=== PATIENT | female | born 2000 | race African-American/Black ===

== ENCOUNTER 2020-03-01 16:13 | Emergency (ER) | payer MEDICAID ==
[~2020-03-01] VITALS: Ht 167.6 cm; Wt 48.0 kg
[2020-03-01 16:19] VITALS: BP 106/46
== END 2020-03-01 18:27 | disposition left against medical advice (07) ==
LOC: ER 16:13
DX: Z53.21 Procedure and treatment not carried out due to patient leaving prior to being seen by health care provider (principal)

== ENCOUNTER 2021-01-25 01:32 | Emergency (ER) | payer SELFPAY ==
[~2021-01-25] VITALS: Ht 160 cm; Wt 55.0 kg
[2021-01-25 01:52] VITALS: BP 122/53
[2021-01-25] MEDS ORDERED: ACETAMINOPHEN 325MG TABLET PO STA (02:25)
[2021-01-25 03:37] LABS: CLARITY URINE CLOUDY (CLEAR); COLOR URINE YELLOW (YELLOW); KETONES URINE NEGATIVE (NEGATIVE); LEUKOCYTE ESTERASE URINE TRACE (NEGATIVE); NITRITE URINE NEGATIVE (NEGATIVE); OCCULT BLOOD URINE NEGATIVE (NEGATIVE); PH URINE 6.5 (4.5-8.0); PROTEIN URINE NEGATIVE (NEGATIVE); SPECIFIC GRAVITY URINE 1.019 (1.005-1.030); UROBILINOGEN URINE 0.2 E.U./dL (0.2-1.0)
[2021-01-25] MEDS ORDERED: LIDOCAINE HCL 1% 20ML VIAL (Pyxis) INJ INFIL SCH (04:30)
[2021-01-25] MEDS ORDERED: CEFTRIAXONE SODIUM 500 MG/VIAL IM SCH (04:30)
[2021-01-25] MEDS ORDERED: DOXY-326 MT (04:36)
[2021-01-25] MEDS ORDERED: METR-167 PO (04:36)
[2021-01-25] MEDS ORDERED: NAPR-681 PO (04:36)
[2021-01-25] MEDS ORDERED: ONDA4TAB5 MT (04:36)
[2021-01-27 10:07] LABS: NEISSERIA GONORRHOEAE NAA Negative (Negative)
== END 2021-01-25 05:56 | disposition home or self-care (01) ==
LOC: ER 01:32
DX: N72 Inflammatory disease of cervix uteri (principal); N76.0 Acute vaginitis; Z79.899 Other long term (current) drug therapy
CPT/HCPCS: 81003; 81025; 87210; 87491; 87591; 96372; 99283; J0696; J3490

== ENCOUNTER 2021-03-13 04:21 | Emergency (ER) | payer SELFPAY ==
[~2021-03-13] VITALS: Ht 160 cm; Wt 53.0 kg
[~2021-03-13 04:21] MED LIST: DOXY-326 MT; METR-167 PO; NAPR-681 PO; ONDA4TAB5 MT
[2021-03-13 05:15] VITALS: BP 130/76
== END 2021-03-13 05:15 | disposition home or self-care (01) ==
LOC: ER 04:21
DX: S61.411A Laceration without foreign body of right hand, initial encounter (principal); W26.0XXA Contact with knife, initial encounter; Y93.89 Activity, other specified; Y92.89 Other specified places as the place of occurrence of the external cause; Y99.8 Other external cause status; Z79.899 Other long term (current) drug therapy
CPT/HCPCS: 99281